=== PATIENT | female | born 1935 | race Caucasian/White ===

== ENCOUNTER 2018-05-25 12:13 | Inpatient (IN) ==
[2018-05-25] MEDS ORDERED: Morphine Sulfate Inj 2 MG/ML Vial IV.PUSH ONE (12:32)
--- NOTE | 2018-05-25 12:32 | ED ---
HPI General Stated Complaint: Trauma Alert Source: patient and EMS Mode of arrival: EMS Limitations: no limitations History of Present Illness HPI narrative: 79-year-old female patient with history of hypertension presents to the ER today because she had tripped and fell and, has a obvious deformity to her left femur. She denies any other injuries. She denies any head injury, loss of consciousness, chest pains, or any other issues. Related Data Allergies Allergy/AdvReac Type Severity Reaction Status Date / Time No Allergy Information Allergy Unverified 05/25/18 12:14 Available Review of Systems ROS: all other systems reviewed are negative PMFSH History History Provided By: Patient Medical History Medical History HTN (hypertension) (Acute) Exam Narrative Exam Narrative: GENERAL: Pleasant elderly white female patient currently in moderate distress. Awake and oriented 3. SKIN: Focused skin assessment warm/dry. HEAD: Atraumatic. Normocephalic. EYES: Pupils equal and round. No scleral icterus. No injection or drainage. ENT: No nasal bleeding or discharge. Mucous membranes pink and moist. NECK: Trachea midline. No JVD. CARDIOVASCULAR: Regular rate and rhythm. No murmur appreciated. RESPIRATORY: No accessory muscle use. Clear to auscultation. Breath sounds equal bilaterally. CHEST: Nontender throughout without deformity or crepitance. No retractions or use of accessory muscles. GASTROINTESTINAL: Abdomen soft, non-tender, nondistended. Hepatic and splenic margins not palpable. Pelvis: Stable and nontender to palpation. EXTREMITIES: No clubbing, cyanosis, or edema. Notable ecchymosis and tenderness at the lower femur area with a small 1 cm laceration to the lateral left knee. Neurovascularly intact. Good pulses. MUSCULOSKELETAL: No obvious deformities. No clubbing. No cyanosis. No edema. NEUROLOGICAL: Awake and alert. No obvious cranial nerve deficits. Motor grossly within normal limits. Normal speech. PSYCHIATRIC: Appropriate mood and affect; insight and judgment normal. Medical Decision Making MDM Narrative Medical decision making narrative: Left femur fracture identified, no dislocations. Patient denies any other injuries, denies any head injury, loss consciousness. There is a small laceration to her left knee, concerning for possible open fracture, tetanus and Ancef ordered for the ER. Case is discussed with Dr. Lee who sees the patient in the trauma room and accepts her for admission. Patient will need orthopedics treatment. Medical Screen Exam Complete: Yes Emergency Medical Condition: Yes Discharge Plan Discharge Disposition Patient Disposition: 30 Still Patient Discharge Condition Condition: Stable Discharge Details Anticipated Discharge Date: 05/25/18 Diagnosis: Femur fracture, left Physicians Team ED Provider: Lizet Medina Status ED Status: In Room
[2018-05-25 12:38] LABS: Baso % (Auto) 0.4 % (0.0-2.0); Eos # (Auto) 0.1 th/mm3 (0.0-0.4); Eos % (Auto) 1.5 % (0.0-4.0); Hematocrit 37.3 % (35.0-46.0); Hemoglobin 12.4 gm/dL (11.6-15.3); Lymph # (Auto) 1.8 th/mm3 (1.0-4.8); Lymph % (Auto) 20.1 % (9.0-44.0); Mean Corpuscular HGB Conc 33.2 % (32.0-36.0); Mean Corpuscular Hemoglobin 29.9 pg (27.0-34.0); Mean Corpuscular Volume 90.2 fL (80.0-100.0); Mean Platelet Volume 7.1 fL (7.0-11.0); Neut # (Auto) 6.1 th/mm3 (1.8-7.7); Platelet Count 256 th/mm3 (150-450); Red Blood Count 4.13 mil/mm3 (4.00-5.30); Red Cell Distribution Width 14.9 % (11.6-17.2); White Blood Count 9.1 th/mm3 (4.0-11.0)
[2018-05-25] MEDS: Diphtheria/Tetanus/Pertussis Vaccine Inj 0.5 ML Syringe IM ONE ×2 (12:43)
[2018-05-25] MEDS ORDERED: ceFAZolin Inj 2,000 MG in Sodium Chlor 0.9% Inj 100 ML IV.SIG ONE (12:45)
--- NOTE | 2018-05-25 12:45 | XR ---
EXAM DATE: 05/25/2018 12:38 PM EDT AGE/SEX: 89 years / Female INDICATIONS: Trauma alert, fall. CLINICAL DATA: This is the patient's initial encounter. Patient reports that signs and symptoms have been present for 1 day and indicates a pain score of 0/10. MEDICAL/SURGICAL HISTORY: None. None. COMPARISON: No prior exams available for comparison. FINDINGS: Basilar density probably represents atelectasis. No significant effusion. No pneumothorax. Tortuous a mesha. Probable previous kyphoplasty in the lower thoracic spine. CONCLUSION: Basilar atelectasis. No effusion or pneumothorax evident. Electronically signed by: Alexander Lim MD 05/25/2018 12:44 PM EDT
[2018-05-25 12:46] LABS: Activated Partial Thrombo Time 25.6 sec (24.3-30.1)
--- NOTE | 2018-05-25 12:49 | XR ---
EXAM DATE: 05/25/2018 12:39 PM EDT AGE/SEX: 89 years / Female INDICATIONS: Trauma alert, fall. CLINICAL DATA: This is the patient's initial encounter. Patient reports that signs and symptoms have been present for 1 day and indicates a pain score of Nonresponsive. MEDICAL/SURGICAL HISTORY: None. None. COMPARISON: No prior exams available for comparison. FINDINGS: Examination of the pelvis demonstrates no evidence of fracture or dislocation. Bony mineralization i s normal. There is no widening of the sacroiliac joints. No foreign body is identified. CONCLUSION: No acute fracture identified. Electronically signed by: Alexander Lim MD 05/25/2018 12:47 PM EDT
--- NOTE | 2018-05-25 12:52 | XR ---
EXAM DATE: 05/25/2018 12:40 PM EDT AGE/SEX: 89 years / Female INDICATIONS: Left femur pain, fall. CLINICAL DATA: This is the patient's initial encounter. Patient reports that signs and symptoms have been present for 1 day and indicates a pain score of 10/10. MEDICAL/SURGICAL HISTORY: None. None. COMPARISON: No prior exams available for comparison. FINDINGS: There is a comminuted fracture of the distal femur with posterior displacement of the distal fragment s. Fracture extends intra-articular. Overlying soft tissue swelling. Proximal tibia appears intact. CONCLUSION: Comminuted and angulated fracture of the distal femur with intra-articular extension. Electronically signed by: Alexander Lim MD 05/25/2018 12:50 PM EDT
[2018-05-25] MEDS ORDERED: Sodium Chlor 0.9% Inj 500 ML IV.SIG SCH (13:00)
[2018-05-25] MEDS ORDERED: HYDROmorphone PF Inj 0.5 MG/0.5 ML Syringe IV.PUSH PRN (14:48)
--- NOTE | 2018-05-25 15:28 | CT ---
EXAM DATE: 05/25/2018 3:20 PM EDT AGE/SEX: 89 years / Female INDICATIONS: Patient fell, fractured distal femur CLINICAL DATA: This is the patient's initial encounter. Patient reports that signs and symptoms have been present for 1 day and indicates a pain score of 10/10. MEDICAL/SURGICAL HISTORY: Hypertension. Discectomy, lumbar. RADIATION DOSE: 7.29 CTDI (mGy) COMPARISON: [facility], FEMUR LEFT 2V, 05/25/2018. . TECHNIQUE: Multiple contiguous axial images were acquired using a multirow detector CT scanner witho ut contrast. Multiplanar reconstruction was performed in the sagittal and coronal planes. Using aut omated exposure control and adjustment of the mA and/or kV according to patient size, radiation dose was kept as low as reasonably achievable to obtain optimal diagnostic quality images. DICOM format i mage data is available electronically for review and comparison. FINDINGS: Bones: There is a comminuted displaced fracture of the distal femoral metaphysis and epiphysis. The femoral condyles are posteriorly displaced by approximately one full shaft width. Displaced butterfly fragments are also present. The fracture lines extend into the intercondylar notch and the medial fe moral condyle. Proximal tibia and fibula are intact. Overall osseous mineralization is decreased. Pat lexi is intact. Joints: There is a small lipohemarthrosis. Soft Tissues: There is hemorrhage and subcutaneous edema around the anterior and posterior aspects o f the knee joint. Muscles demonstrate no definite abnormality. Popliteal artery demonstrates calcific ation but no definite acute abnormality on this noncontrast examination. Other: No foreign bodies seen. CONCLUSION: 1. Comminuted displaced intra-articular fracture of the distal femoral metaphysis and epiphysis. Fra cture lines extend into the intercondylar notch and medial femoral condyle. 2. Small lipo-hemarthrosis with hemorrhage and subcutaneous edema in the surrounding soft tissues. Electronically signed by: Timothy Constantino MD 05/25/2018 3:26 PM EDT
[2018-05-25] MEDS: Sod Chloride 0.9% Inj 1,000 ML IV.CONT SCH (15:33)
[2018-05-25] MEDS ORDERED: HYDROmorphone PF Inj 2 MG/ML Vial ONE (15:46)
[2018-05-25] MEDS: Pantoprazole Inj 40 MG Vial IV.PUSH SCH (16:05)
[2018-05-25] MEDS: HYDROmorphone PF Inj 2 MG/ML Vial IV.PUSH PRN (16:06)
--- NOTE | 2018-05-25 19:48 | MH ---
cc: Steven Lee MD DATE OF ADMISSION: 05/25/2018 CHIEF COMPLAINT: Status post fall, left femur fracture. HISTORY OF PRESENT ILLNESS: The patient is an 79-year-old female who presents to the emergency department as a trauma nontrauma alert. She is status post trip and fall. She is noted to deny any loss of consciousness. Denies any other injuries. She is complaining of left-sided leg deformity which x-ray confirmed left distal femur fracture. The patient had primary and secondary surveys completed. The patient is GCS of 15; following commands appropriately and complaining of left lower extremity pain. She has had 2+ pulses left lower extremity. Patient noted to trip and fall. She denies any syncopal episodes or previous falls. PAST MEDICAL HISTORY: Hypertension. PAST SURGICAL HISTORY: Spine surgery. ALLERGIES: NO KNOWN DRUG ALLERGIES. MEDICATIONS: See EMR. SOCIAL HISTORY: Denies smoking, ETOH or IVDA. FAMILY HISTORY: Denies diabetes or hypertension. REVIEW OF SYSTEMS: GENERAL: A 12-point review of systems done, otherwise negative except as per above. PHYSICAL EXAMINATION: GENERAL: The patient in no acute distress. VITAL SIGNS: Temperature 98.2, pulse 61, respiration 15, blood pressure 170/98, saturation 98%. HEENT: Pupils equal, round, reactive. NECK: Supple. Trachea midline. Clavicles nontender. LUNGS: Clear to auscultation, bilateral expansion. HEART: S1, S2. Regular rate and rhythm. ABDOMEN: Soft, nontender, nondistended. EXTREMITIES: Warm and well perfused. Left lower extremity deformity, tender to palpation, 2+ pulses all extremities. NEUROLOGIC: GCS 15. 5/5 motor in all extremities. Normal speech. PSYCHIATRIC: Appropriate mood, appropriate affect. LABORATORY AND DIAGNOSTIC DATA: WBC 9.1, hemoglobin 12.4, hematocrit 37.3, platelets 256. Sodium 137, potassium 3.9, chloride 101, BUN 27, creatinine 1.1, glucose 115. INR is 1. CT is reviewed by myself showing x-ray of pelvis, no acute fracture. X-ray left femur: Comminuted, angulated femur fracture distal femur intraarticular extension. Chest x-ray: No acute pathology other than a basal atelectasis. ASSESSMENT: Patient is an 79-year-old female status post trip and fall, presents with left extremity femur fracture. PLAN: A full clinical workup of patient on above the issues. At this point, consultation orthopedics for evaluation. Orthopedics planning for operative intervention. We will make the patient regular diet, n.p.o. at midnight, pain control, IV fluids. The patient will be admitted to the surgical floor. We will keep a close observation of patient evidence of ongoing injury. Discussed with the patient in detail. MD LEILA Erickson/arlette , 07:04 PM , 07:14 PM
--- NOTE | 2018-05-25 20:50 | MB ---
cc: Jose Shelton [facility] DATE: 05/25/2018 CHIEF COMPLAINT: Fall with left knee pain. HISTORY OF PRESENT ILLNESS: This is an 79-year-old female with a history of hypertension, hyperlipidemia, and hypothyroidism. The patient arrived in the emergency department today as a trauma alert after she tripped and fell, landing on her left knee. The patient reported having obvious deformity to the left leg. The patient denied having any other injuries. The patient denies head injury or loss of consciousness. The patient currently reports moderate pain to the left knee. The patient denies any prior history to the left lower extremity. The patient denies tingling and numbness. The patient's left lower extremity was evaluated in the emergency department and was found to have a distal femur fracture. The undersigned was consulted for evaluation. REVIEW OF SYSTEMS: Negative x 12, except for what is stated in the HPI. PAST MEDICAL HISTORY: Includes hypertension, hyperlipidemia, and hypothyroidism. 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 FAMILY HISTORY: The patient's mother from heart disease including strokes and heart attacks. The patient's father from circulatory complications and a [id number]-motx amputation, which ultimately resulted in . SOCIAL HISTORY: The patient denies tobacco use and admits to social drinking. ALLERGIES: THE PATIENT HAS NO KNOWN DRUG ALLERGIES. MEDICATIONS: See nurse's notes. PHYSICAL EXAMINATION: VITAL SIGNS: Pulse 58, respirations 16, blood pressure 148/65, pulse oximetry 96% on 2 liters nasal cannula. GENERAL: The patient is resting comfortably in bed, in no acute distress. The patient is well-nourished and well-developed. HEENT: Head is atraumatic and normocephalic. EYES: PERRLA. EARS, NOSE AND THROAT: The patient has moist mucous membranes. No nasal or ear drainage. NECK: Supple and trachea is midline. CARDIOVASCULAR: The patient has 2+ radial and pedal pulses bilaterally. RESPIRATORY: The patient has symmetric chest wall rise and nonlabored breathing. ABDOMEN: The patient's abdomen is soft, nondistended and nontender. MUSCULOSKELETAL: The patient has a long leg splint on the left lower extremity, immobilizing the left knee. The patient has no tenderness to the left ankle or left hip. The patient has good range of motion and no tenderness about the right lower extremity and bilateral upper extremities. NEUROVASCULAR: The patient is alert and oriented x 3 and has no obvious cranial nerve deficits. PSYCHOSOCIAL: The patient has normal mood and affect. LABORATORY DATA: Labs taken on 05/25/2018 show white blood cell count of 9.1, hemoglobin 12.4, hematocrit 37.3, platelets 256. INR is 1, creatinine is 1.1, and glucose is 115. IMAGING: X-ray of the left femur, 2 views taken on 05/25/2018, reads as comminuted and angulated fracture of the distal femur with intra-articular extension. I did review these images and agree with the radiologist's interpretation. AP of the pelvis on 05/25/2018 is read as no acute fracture identified. I have reviewed these images and agree with the radiologist's interpretation. CT of the left knee without contrast on 05/25/2018 reads as a comminuted displaced intra-articular fracture of the distal femoral metaphysis at the physis apophysis. Fracture lines extend into the intercondylar notch and medial femoral condyle. There is a small lipohemarthrosis with hemorrhage and subcutaneous edema in the surrounding soft tissues. I did review the above images and the radiologist's interpretation and agree with this documentation. IMPRESSION: Left comminuted displaced intraarticular distal femur fracture. MEDICAL DECISION MAKING: I have reviewed the above images and examined the patient. We had a lengthy discussion regarding the patient's need for surgical management. We discussed the various types of surgery, including the possibility for rods, plates, and screws. We discussed the risks and benefits of surgery, as well as what to expect with postoperative rehabilitation. The patient has very few medical problems, making her a good candidate for surgical management. The patient understands she will likely require a period of time where she is nonweightbearing postoperatively. After discussing her options, the patient has agreed to proceed with surgical management for the left femur. The patient will be n.p.o. after midnight. The patient's left lower extremity was marked for surgery. The patient understands that surgery may be with one of our partners who is a trauma specialist, depending on the timing of our schedule. I have reviewed the above impression and plan of care with Dr. Rodriguez, and he agrees with this documentation. FLAVIA Xavier , 07:30 PM , 07:45 PM
[2018-05-25] MEDS: Docusate Sodium 100 MG Capsule PO SCH (21:10)
[2018-05-25] MEDS: Docusate Sodium Liq 100 MG/10 ML UDC PO SCH (21:10)
[2018-05-26] MEDS ORDERED: Chlorhexidine Gluconate 2% 1 Pack (2 Cloths) TOPICAL SCH ×2 (01:45→04:00)
[2018-05-26] MEDS: Sod Chloride 0.9% Inj 1,000 ML IV.CONT SCH ×2 (03:15→10:32)
[2018-05-26] MEDS ORDERED: Chlorhexidine Gluconate 2% 1 Pack (2 Cloths) TOPICAL PRN (04:00)
[2018-05-26] MEDS: HYDROmorphone PF Inj 2 MG/ML Vial IV.PUSH PRN (04:37)
--- NOTE | 2018-05-26 06:41 | P.PNOP ---
Subjective Interval history: s/p fall at home left knee pain. no other complaints Physical Exam Vital signs: Vital Signs 05/25/18 12:05 05/25/18 12:41 05/25/18 13:04 Temperature Pulse Rate 60 61 Respiratory Rate 14 Blood Pressure 147/65 H Pulse Oximetry 97 98 97 05/25/18 13:28 05/25/18 14:48 05/25/18 14:49 Temperature Pulse Rate 61 Respiratory Rate 15 Blood Pressure 170/98 H Pulse Oximetry 99 98 98 05/25/18 16:00 05/25/18 16:40 05/25/18 19:34 Temperature Pulse Rate 58 L 58 L Respiratory Rate 16 16 Blood Pressure 148/65 H Pulse Oximetry 96 05/25/18 20:00 05/25/18 22:00 05/26/18 00:00 Temperature 97.5 F L 97.3 F L Pulse Rate 79 74 Respiratory Rate 20 16 16 Blood Pressure 141/85 H 162/14 H Pulse Oximetry 100 96 05/26/18 00:31 05/26/18 04:00 Temperature 97.6 F Pulse Rate 76 Respiratory Rate 17 Blood Pressure 174/74 H Pulse Oximetry 97 99 Intake & Output 05/25/18 05/25/18 05/26/18 06:59 18:59 06:59 Intake Total 1200 / 1200 Balance 1200 / 1200 Weight 58.967 kg 72.4 kg Intake: IV 1100 / 1100 NS Inj 1,000 ML @ 100 mls/hr IV 1000 / 1000 .CONT .Q10H [place] Rx#:[id number] Ancef Inj 2,000 MG In NS Inj 100 / 100 100 ML @ 100 mls/hr IV.SIG ONCE ONE Rx#:[id number] Oral 100 / 100 Other: # Voids 1 Date of Last Bowel Movement 05/25/18 # Bowel Movements 1 Narrative: LLE: +long leg splint. intact. NVI Results - Labs CBC & Chem 7: 05/25/18 12:15 Laboratory Results - last 24 hr 05/25/18 05/25/18 05/25/18 12:15 12:15 12:15 WBC 9.1 RBC 4.13 Hgb 12.4 POC Hgb (Calc) 12.2 Hct 37.3 POC Hct 36.0 MCV 90.2 MCH 29.9 MCHC 33.2 RDW 14.9 Plt Count 256 MPV 7.1 Neut % (Auto) 67.0 Lymph % (Auto) 20.1 [place] % (Auto) 11.0 H Eos % (Auto) 1.5 Baso % (Auto) 0.4 Neut # (Auto) 6.1 Lymph # (Auto) 1.8 [place] # (Auto) 1.0 H Eos # (Auto) 0.1 Baso # (Auto) 0.0 WBC Differential . Differential Comment Auto diff final PT 10.0 INR 1.0 APTT 25.6 POC Sodium 137 POC Potassium 3.9 POC Chloride 101 L POC BUN 27 H POC Creatinine 1.1 POC Glucose 115 H Blood Type Antibody Screen 05/25/18 12:15 WBC RBC Hgb POC Hgb (Calc) Hct POC Hct MCV MCH MCHC RDW Plt Count MPV Neut % (Auto) Lymph % (Auto) [place] % (Auto) Eos % (Auto) Baso % (Auto) Neut # (Auto) Lymph # (Auto) [place] # (Auto) Eos # (Auto) Baso # (Auto) WBC Differential Differential Comment PT INR APTT POC Sodium POC Potassium POC Chloride POC BUN POC Creatinine POC Glucose Blood Type O Negative Antibody Screen Negative - Imaging Impressions Femur X-Ray 05/25/18 00:00 CONCLUSION: Comminuted and angulated fracture of the distal femur with intra-articular extension. Chest X-Ray 05/25/18 12:15 CONCLUSION: Basilar atelectasis. No effusion or pneumothorax evident. Pelvis X-Ray 05/25/18 12:15 CONCLUSION: No acute fracture identified. Knee CT 05/25/18 13:05 CONCLUSION: 1. Comminuted displaced intra-articular fracture of the distal femoral metaphysis and epiphysis. Fracture lines extend into the intercondylar notch and medial femoral condyle. 2. Small lipo-hemarthrosis with hemorrhage and subcutaneous edema in the surrounding soft tissues. Assessment and Plan - Assessment and Plan 1) Left distal Femur Fx -npo -consents -surgery this AM with Jagdish for ORIF vs exfix
[2018-05-26] MEDS ORDERED: Metoprolol Tartrate 25 MG Tablet ONE (08:14)
[2018-05-26] MEDS: Docusate Sodium Liq 100 MG/10 ML UDC PO SCH (08:48)
[2018-05-26] MEDS: amLODIPine 5 MG Tablet PO SCH (08:48)
[2018-05-26] MEDS: Atenolol 25 MG Tablet PO SCH (08:48)
[2018-05-26] MEDS: Docusate Sodium 100 MG Capsule PO SCH (08:48)
[2018-05-26] MEDS ORDERED: Calcium/Vitamin D 250/125 MG Tablet PO SCH (09:00)
[2018-05-26] MEDS ORDERED: Morphine Inj 4 MG/ML Vial IV.PUSH PRN (11:21)
[2018-05-26] MEDS ORDERED: Post-op Orders (for Pharmacy) OTHER STA (11:21)
--- NOTE | 2018-05-26 11:31 | P.CONOP ---
[facility] Orthopedics Consult Note - [facility] Consult date: 05/26/18 Chief complaint: Fall, Left Femur FX Narrative: Martina is a an 82-year-old female. She had a mechanical fall. She landed on her left leg. She had immediate left leg pain and was unable to stand or ambulate. She states that she was walking quickly and her shoe caught on the ground. She denies dizziness, syncope, or loss of consciousness. Her only complaint is her left leg. Pain is worse with movement and is improved with rest. Pain is severe and intense with any motion. Review of Systems Patient denies fevers, chills, weight loss, headache, visual changes, hearing loss, chest pain, palpitations, shortness of breath, nausea, vomiting, no urinary changes, diarrhea, bowel changes, neck pain, back pain, skin rashes, weakness of extremities, easy bleeding, enlarged lymph nodes, numbness of extremities, anxiety, or depression. 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 - Medical History Medical History: Medical History (Last Updated 05/25/18 @ 12:41 by Meliza Costello) HTN (hypertension) Hypercholesterolemia Hypothyroidism - Surgical History Surgical History: Surgical History (Last Updated 05/25/18 @ 12:41 by Meliza Costello) History of back surgery - Family History Family History: Family History (Last Updated 05/26/18 @ 11:27 by Jarek Gudino MD) Other Family history of hypertension - Tobacco History Second Hand Smoke Exposure: No Smoking Status: Never smoker - Alcohol History How Often Do You Have a Drink Containing Alcohol: 2 to 3 times a week - Substance Use History Substance History: No History of Abuse - Travel History Recent Travel in the [facility] Within the Last 8 Weeks: No Recent Travel Out of the Country Within the Last 8 Weeks: No - Immunization History Tetanus Immunization: Unsure Hx Influenza Vaccine This Season: Yes Medications and Allergies Active Medications: Active Medications Amlodipine Besylate (Norvasc) 2.5 mg PO DAILY [facility] Last Admin: 05/26/18 08:48 Dose: Not Given Atenolol (Tenormin) 25 mg PO DAILY [facility] Last Admin: 05/26/18 08:48 Dose: Not Given Calcium/Vitamin D (Oscal With D 250/125 Mg) 2 tab PO BID [facility] Last Admin: 05/26/18 08:48 Dose: Not Given Chlorhexidine Gluconate (Chlorhexidine 2% Cloth) 3 pack TOPICAL DAILY@0400 [facility] Stop: 05/31/18 03:59 Last Admin: 05/26/18 05:28 Dose: Not Given Chlorhexidine Gluconate (Chlorhexidine 2% Cloth) 3 pack TOPICAL DAILY@0400 PRN PRN Reason: Extra cloth needed Stop: 05/31/18 03:59 Chlorhexidine Gluconate (Chlorhexidine 2% Cloth) 3 pack TOPICAL QUILL FIXER [facility] Stop: 05/29/18 01:41 Docusate Sodium (Colace) 100 mg PO BID [facility] Last Admin: 05/26/18 08:48 Dose: Not Given Docusate Sodium (Colace Liq) 100 mg PO BID [facility] Last Admin: 05/26/18 08:48 Dose: Not Given Enalaprilat (Vasotec Inj) 1.25 mg IV.PUSH Q8H PRN PRN Reason: Blood pressure 180/95 Hydromorphone HCl (Dilaudid Pf Inj) 0.5 mg IV.PUSH Q4H PRN PRN Reason: BREAKTHROUGH PAIN Last Admin: 05/26/18 04:37 Dose: 0.5 mg Sodium Chloride (Ns Inj) 500 mls @ 0 mls/hr IV.SIG .Q0M [facility] Sodium Chloride (Ns Inj) 1,000 mls @ 100 mls/hr IV.CONT .Q10H [facility] Last Admin: 05/26/18 10:32 Dose: Not Given Lactated Ringer's (Lr 1000 Ml Inj) 1,000 mls @ 30 mls/hr IV.SIG .Q24H [facility] Stop: 05/29/18 01:41 Last Admin: 05/26/18 08:03 Dose: 30 mls/hr Levothyroxine Sodium (Synthroid) 75 mcg PO DAILY@0600 [facility] Miscellaneous (Pill Splitter) 1 each OTHER UNSCH PRN PRN Reason: SEE LABEL COMMENTS Ondansetron HCl (Zofran Inj) 4 mg IV.PUSH Q6H PRN PRN Reason: NAUSEA OR VOMITING Oxycodone HCl (Roxicodone) 5 mg PO Q4H PRN PRN Reason: Pain 1-5 Last Admin: 05/25/18 21:09 Dose: 5 mg Pantoprazole Sodium (Protonix Inj) 40 mg IV.PUSH Q24H [facility] Last Admin: 05/25/18 16:05 Dose: 40 mg Povidone Iodine (Betadine 5% Antisepsis Kit) 1 applicatio EACH NARE QUILL FIXER [facility] Stop: 05/29/18 01:41 Pravastatin Sodium (Pravachol) 20 mg PO QPM [facility] Sodium Chloride (Ns Flush) 2 ml IV.FLUSH UNSCH PRN PRN Reason: FLUSH AFTER USING IV ACCESS Last Admin: 05/26/18 07:55 Dose: 2 ml Allergies Allergy/AdvReac Type Severity Reaction Status Date / Time No Known Allergies Allergy Unverified 05/25/18 12:40 Home Medications Medication Instructions Recorded Confirmed Type amlodipine 2.5 mg PO DAILY 05/25/18 05/25/18 History atenolol 25 mg PO DAILY 05/25/18 05/25/18 History calcium carbonate-vitamin D3 1 tab PO BID 05/25/18 05/25/18 History [Calcium 500 + D] levothyroxine [Synthroid] 75 mcg PO DAILY 05/25/18 05/25/18 History multivitamin [Daily Vitamin See Label Instructions .ROUTE 05/25/18 05/25/18 History Formula] .COMPLEX omega-3 fatty acids See Label Instructions .ROUTE 05/25/18 05/25/18 History .COMPLEX simvastatin 10 mg PO QPM 05/25/18 05/25/18 History Exam Vital signs: Vital Signs 05/25/18 12:05 05/25/18 12:41 05/25/18 13:04 Temperature Pulse Rate 60 61 Respiratory Rate 14 Blood Pressure 147/65 H Pulse Oximetry 97 98 97 05/25/18 13:28 05/25/18 14:48 05/25/18 14:49 Temperature Pulse Rate 61 Respiratory Rate 15 Blood Pressure 170/98 H Pulse Oximetry 99 98 98 05/25/18 16:00 05/25/18 16:40 05/25/18 19:34 Temperature Pulse Rate 58 L 58 L Respiratory Rate 16 16 Blood Pressure 148/65 H Pulse Oximetry 96 05/25/18 20:00 05/25/18 22:00 05/26/18 00:00 Temperature 97.5 F L 97.3 F L Pulse Rate 79 74 Respiratory Rate 20 16 16 Blood Pressure 141/85 H 162/14 H Pulse Oximetry 100 96 05/26/18 00:31 05/26/18 04:00 05/26/18 08:00 Temperature 97.6 F 97.7 F Pulse Rate 76 81 Respiratory Rate 17 14 Blood Pressure 174/74 H 182/75 H Pulse Oximetry 97 99 99 Intake & Output 05/25/18 05/26/18 05/26/18 18:59 06:59 18:59 Intake Total 1200 / 1200 Balance 1200 / 1200 Weight 58.967 kg 72.4 kg Intake: IV 1100 / 1100 NS Inj 1,000 ML @ 100 mls/hr IV 1000 / 1000 .CONT .Q10H [facility] Rx#:[id number] Ancef Inj 2,000 MG In NS Inj 100 / 100 100 ML @ 100 mls/hr IV.SIG ONCE ONE Rx#:[id number] Oral 100 / 100 Other: # Voids 1 Date of Last Bowel Movement 05/25/18 # Bowel Movements 1 Narrative: Martina is a pleasant 82-year-old female. She is alert and oriented 3. General: Awake and alert. No acute distress. Appears well-developed well- nourished Head: Normocephalic, atraumatic pupils are equal Neck: Soft, nontender, trachea midline Abdomen: Soft, nondistended Examination of bilateral upper extremities reveals no pain or deformity with shoulder, elbow, or wrist motion. Skin is intact. Radial pulses are palpable bilaterally. Normal capillary refill in fingers. Sensation is intact in radial , ulnar, and median nerve distributions. 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 No lymphadenopathy noted. Examination of right lower extremity reveals no pain or deformity with hip, knee , or ankle motion. Skin is intact. Sensation is intact in right foot. Dorsalis pedis pulse is palpable. Normal capillary refill and feet. Thigh and calf compartments are soft. No lymphadenopathy noted. +5 strength of ankle dorsiflexion and plantarflexion. Examination of left leg reveals no tenderness on her hip or ankle. She has mild swelling around the knee. She has a small bruise over the anterior knee. She has pain with any motion. Thigh and calf compartments are soft. Sensation is intact left foot. Dorsalis pedis pulse is palpable. Results - Labs Result Diagrams: 05/25/18 12:15 Labs: Laboratory Results - last 24 hr 05/25/18 05/25/18 05/25/18 12:15 12:15 12:15 WBC 9.1 RBC 4.13 Hgb 12.4 POC Hgb (Calc) 12.2 Hct 37.3 POC Hct 36.0 MCV 90.2 MCH 29.9 MCHC 33.2 RDW 14.9 Plt Count 256 MPV 7.1 Neut % (Auto) 67.0 Lymph % (Auto) 20.1 [place] % (Auto) 11.0 H Eos % (Auto) 1.5 Baso % (Auto) 0.4 Neut # (Auto) 6.1 Lymph # (Auto) 1.8 [place] # (Auto) 1.0 H Eos # (Auto) 0.1 Baso # (Auto) 0.0 WBC Differential . Differential Comment Auto diff final PT 10.0 INR 1.0 APTT 25.6 POC Sodium 137 POC Potassium 3.9 POC Chloride 101 L POC BUN 27 H POC Creatinine 1.1 POC Glucose 115 H Blood Type Antibody Screen 05/25/18 12:15 WBC RBC Hgb POC Hgb (Calc) Hct POC Hct MCV MCH MCHC RDW Plt Count MPV Neut % (Auto) Lymph % (Auto) [place] % (Auto) Eos % (Auto) Baso % (Auto) Neut # (Auto) Lymph # (Auto) [place] # (Auto) Eos # (Auto) Baso # (Auto) WBC Differential Differential Comment PT INR APTT POC Sodium POC Potassium POC Chloride POC BUN POC Creatinine POC Glucose Blood Type O Negative Antibody Screen Negative - Diagnostic results Imaging: Impressions Femur X-Ray 05/25/18 00:00 CONCLUSION: Comminuted and angulated fracture of the distal femur with intra-articular extension. Chest X-Ray 05/25/18 12:15 CONCLUSION: Basilar atelectasis. No effusion or pneumothorax evident. Pelvis X-Ray 05/25/18 12:15 CONCLUSION: No acute fracture identified. Knee CT 05/25/18 13:05 CONCLUSION: 1. Comminuted displaced intra-articular fracture of the distal femoral metaphysis and epiphysis. Fracture lines extend into the intercondylar notch and medial femoral condyle. 2. Small lipo-hemarthrosis with hemorrhage and subcutaneous edema in the surrounding soft tissues. Knee x-ray: report reviewed, image reviewed Knee CT: report reviewed, image reviewed Assessment and Plan - Problem List (1) Osteoporosis Code(s): M81.0 - Age-related osteoporosis without current pathological fracture Status: Acute (2) Femur fracture, left Code(s): S72.92XA - Unspecified fracture of left femur, initial encounter for closed fracture Status: Acute - Assessment and Plan Martina has a complex comminuted intra-articular left distal femur fracture. X- rays and CT scan were reviewed. I discussed treatment options with patient including surgical and nonsurgical options. At this point I would recommend open reduction internal fixation of left distal femur fracture. The risk and benefits of surgery were discussed in depth with patient. The risk of surgery include bleeding, infection, injuries to arteries, nerves, or blood vessels, infection, wound complications, knee stiffness, knee arthritis, nonunion, malunion, painful hardware, and need for further surgery. I also discussed medical complications including blood clots, pneumonia, stroke, heart attack, and . Informed consent was obtained and all questions were answered. I will start patient on calcium and vitamin D supplementation for osteoporosis Patient will have SCDs, CIERRA hose, and Lovenox for DVT prophylaxis I will consult physical therapy postoperatively. She will be nonweightbearing left leg I will plan on surgery today A mid-level provider in my office (nurse practitioner or physician tiler's assistant) may see this patient on follow-up visits and continue to implement the objectives of this plan including: Starting or adjusting medications, injections , cast application, orthotics, brace application, physical therapy, radiological studies (including x-ray, MRI, CT, ultrasound, bone scan), vascular studies, neurologic studies, specialist consultation, and proceeding with surgical management, as appropriate.
--- NOTE | 2018-05-26 11:44 | XR ---
EXAM DATE: 05/26/2018 11:30 AM EDT AGE/SEX: 82 years / Female INDICATIONS: Left femur open reduction internal fixation. CLINICAL DATA: This is the patient's initial encounter. Patient reports that signs and symptoms have been present for 1 day and indicates a pain score of Nonresponsive. MEDICAL/SURGICAL HISTORY: Non-responsive. Non-responsive. COMPARISON: No prior exams available for comparison. FINDINGS: Plate with screws is seen bridging the fracture of the distal femur in anatomic alignment. CONCLUSION: Anatomic alignment on AP spot films. Electronically signed by: Andrei Vazquez MD 05/26/2018 11:43 AM EDT
[2018-05-26] MEDS ORDERED: *Meperidine Inj 25 MG/ML Vial PERIprocedural Use ONLY ONE (12:06)
[2018-05-26] MEDS ORDERED: fentaNYL Citrate Inj 100 MCG/2 ML Ampul ONE ×2 (12:08)
--- NOTE | 2018-05-26 12:30 | P.PN ---
Subjective Interval history: OR today with Ortho for left femur repair Physical Exam Vital signs: Vital Signs 05/25/18 12:41 05/25/18 13:04 05/25/18 13:28 Temperature Pulse Rate 60 61 Respiratory Rate 14 Blood Pressure 147/65 H Pulse Oximetry 98 97 99 05/25/18 14:48 05/25/18 14:49 05/25/18 16:00 Temperature Pulse Rate 61 58 L Respiratory Rate 15 16 Blood Pressure 170/98 H 148/65 H Pulse Oximetry 98 98 96 05/25/18 16:40 05/25/18 19:34 05/25/18 20:00 Temperature 97.5 F L Pulse Rate 58 L 79 Respiratory Rate 16 20 Blood Pressure 141/85 H Pulse Oximetry 100 05/25/18 22:00 05/26/18 00:00 05/26/18 00:31 Temperature 97.3 F L Pulse Rate 74 Respiratory Rate 16 16 Blood Pressure 162/14 H Pulse Oximetry 96 97 05/26/18 04:00 05/26/18 07:35 05/26/18 08:00 Temperature 97.6 F 97.7 F Pulse Rate 76 81 Respiratory Rate 17 14 Blood Pressure 174/74 H 182/75 H Pulse Oximetry 99 99 99 Intake & Output 05/25/18 05/26/18 05/26/18 18:59 06:59 18:59 Intake Total 1200 / 1200 1300 / 1300 Output Total 100 / 100 Balance 1200 / 1200 1200 / 1200 Weight 58.967 kg 72.4 kg Intake: IV 1100 / 1100 NS Inj 1,000 ML @ 100 mls/hr IV 1000 / 1000 .CONT .Q10H [facility] Rx#:[id number] Ancef Inj 2,000 MG In NS Inj 100 / 100 100 ML @ 100 mls/hr IV.SIG ONCE ONE Rx#:[id number] Oral 100 / 100 Anesthesia Amount 1300 / 1300 Output: Estimated Blood Loss 100 / 100 Other: # Voids 1 Date of Last Bowel Movement 05/25/18 # Bowel Movements 1 Narrative: GENERAL: 82-year-old well-nourished, well developed female lying in bed in no acute distress. SKIN: Warm and dry. CARDIOVASCULAR: Regular rate and rhythm. RESPIRATORY: No accessory muscle use. Lungs clear to auscultation. Breath sounds equal bilaterally. GASTROINTESTINAL: Abdomen soft, non-tender, nondistended. + BS. MUSCULOSKELETAL: Extremities without cyanosis, or edema. Left leg with John wrap and CKS in place. MAEW, + perfused NEUROLOGICAL: Awake and alert. Normal speech. Results - Labs CBC & Chem 7: 05/28/18 03:17 Laboratory Results - last 24 hr 05/25/18 05/25/18 05/25/18 12:15 12:15 12:15 WBC 9.1 RBC 4.13 Hgb 12.4 POC Hgb (Calc) 12.2 Hct 37.3 POC Hct 36.0 MCV 90.2 MCH 29.9 MCHC 33.2 RDW 14.9 Plt Count 256 MPV 7.1 Neut % (Auto) 67.0 Lymph % (Auto) 20.1 [place] % (Auto) 11.0 H Eos % (Auto) 1.5 Baso % (Auto) 0.4 Neut # (Auto) 6.1 Lymph # (Auto) 1.8 [place] # (Auto) 1.0 H Eos # (Auto) 0.1 Baso # (Auto) 0.0 WBC Differential . Differential Comment Auto diff final PT 10.0 INR 1.0 APTT 25.6 POC Sodium 137 POC Potassium 3.9 POC Chloride 101 L POC BUN 27 H POC Creatinine 1.1 POC Glucose 115 H Blood Type Antibody Screen 05/25/18 12:15 WBC RBC Hgb POC Hgb (Calc) Hct POC Hct MCV MCH MCHC RDW Plt Count MPV Neut % (Auto) Lymph % (Auto) [place] % (Auto) Eos % (Auto) Baso % (Auto) Neut # (Auto) Lymph # (Auto) [place] # (Auto) Eos # (Auto) Baso # (Auto) WBC Differential Differential Comment PT INR APTT POC Sodium POC Potassium POC Chloride POC BUN POC Creatinine POC Glucose Blood Type O Negative Antibody Screen Negative - Imaging Impressions Femur X-Ray 05/25/18 00:00 CONCLUSION: Comminuted and angulated fracture of the distal femur with intra-articular extension. Chest X-Ray 05/25/18 12:15 CONCLUSION: Basilar atelectasis. No effusion or pneumothorax evident. Pelvis X-Ray 05/25/18 12:15 CONCLUSION: No acute fracture identified. Knee CT 05/25/18 13:05 CONCLUSION: 1. Comminuted displaced intra-articular fracture of the distal femoral metaphysis and epiphysis. Fracture lines extend into the intercondylar notch and medial femoral condyle. 2. Small lipo-hemarthrosis with hemorrhage and subcutaneous edema in the surrounding soft tissues. Femur X-Ray 05/26/18 00:00 CONCLUSION: Anatomic alignment on AP spot films. Assessment and Plan - Plan [place]: Tripped and fell from the standing position. No LOC. INJURIES: LEFT femur fx Knee lac PMHx: HTN, HLD, hypothyroidism LEFT femur fx, Knee lac Orthopedics consulted OR today Pain control Bowel regimen PT/OT Plan of care discussed with patient at bedside. Collaborating Trauma surgeon agrees with plan. Case management consulted to assist with discharge planning. - Attending Attestation The exam, history, and the medical decision-making described in the above note were completed with the assistance of the mid-level provider. I reviewed and agree with the findings presented. I attest that I had a [id number] encounter with the patient on the same day, and personally performed and documented my assessment and findings in the medical record.
[2018-05-26] MEDS ORDERED: Neostigmine Inj 5 MG/5 ML Syringe IV.PUSH ONE (15:35)
[2018-05-26] MEDS ORDERED: Lidocaine PF 1% Inj 5 ML Syringe INFILTRATN ONE (15:35)
[2018-05-26] MEDS ORDERED: Phenylephrine/NS 1000 MCG/10ML Syringe IV.PUSH ONE (15:35)
[2018-05-26] MEDS ORDERED: Glycopyrrolate Inj 1 MG/5 ML Syringe IV.PUSH ONE (15:35)
[2018-05-26] MEDS: Calcium/Vitamin D 250/125 MG Tablet PO SCH ×2 (15:36→17:19)
[2018-05-26] MEDS ORDERED: Acetaminophen 325 MG Tablet PO PRN (15:41)
[2018-05-26] MEDS: Pantoprazole Inj 40 MG Vial IV.PUSH SCH (17:19)
[2018-05-26] MEDS: ceFAZolin Inj 2,000 MG in Sodium Chlor 0.9% Inj 80 ML IV.SIG SCH ×2 (17:27→23:18)
[2018-05-26] MEDS: Senna/Docusate Sodium 8.6/50 MG Tablet PO SCH (20:45)
--- NOTE | 2018-05-26 21:39 | ECG ---
Date Performed: 05/26/2018 Time Performed: 05:44:54 PTAGE: 89 years EKG: Sinus rhythm . Possible anterior infarct - age undetermined Lateral ST-T changes may be due to myocardial ischemia Abnormal ECG NO PREVIOUS TRACING DOCTOR: Jered Luis Interpretating Date/Time 05/26/2018 21:36:58
[2018-05-27 04:48] LABS: Hemoglobin 6.8 gm/dL (11.6-15.3)
[2018-05-27] MEDS: Levothyroxine 75 MCG Tablet PO SCH (05:20)
[2018-05-27] MEDS ORDERED: Sodium Chlor 0.9% Inj 250 ML IV.SIG SCH (06:00)
--- NOTE | 2018-05-27 06:22 | P.PNOP ---
Subjective Interval history: POD 1 s/p ORIF left distal femur doing well. pain controlled. no complaints. Physical Exam Vital signs: Vital Signs 05/26/18 07:35 05/26/18 08:00 05/26/18 11:51 Temperature 97.7 F 96.6 F L Pulse Rate 81 102 H Respiratory Rate 14 22 Blood Pressure 182/75 H 184/82 H Pulse Oximetry 99 99 89 L 05/26/18 12:00 05/26/18 12:15 05/26/18 12:30 Temperature Pulse Rate 90 80 69 Respiratory Rate 23 12 12 Blood Pressure 178/77 H 152/65 H 139/63 Pulse Oximetry 96 99 99 05/26/18 12:45 05/26/18 13:00 05/26/18 13:30 Temperature 97.4 F L Pulse Rate 76 69 62 Respiratory Rate 12 15 14 Blood Pressure 149/55 H 154/68 H 147/98 H Pulse Oximetry 100 100 100 05/26/18 14:00 05/26/18 15:00 05/26/18 16:00 Temperature 97.4 F L 97.9 F Pulse Rate 81 63 69 Respiratory Rate 14 16 16 Blood Pressure 159/70 H 146/90 H 150/69 H Pulse Oximetry 99 99 90 L 05/26/18 20:00 05/27/18 00:00 05/27/18 04:00 Temperature 97.2 F L 97.6 F 98.1 F Pulse Rate 72 81 89 Respiratory Rate 16 16 17 Blood Pressure 118/56 L 126/63 132/57 L Pulse Oximetry 94 L 94 L 99 Intake & Output 05/26/18 05/26/18 05/27/18 06:59 18:59 06:59 Intake Total 1200 / 1200 1740 / 1740 2300 / 2300 Output Total 1000 / 1000 Balance 1200 / 1200 740 / 740 2300 / 2300 Weight 72.4 kg 72.4 kg 72.4 kg Intake: IV 1100 / 1100 200 / 200 2300 / 2300 LR 1000 mL Inj 1,000 ML @ 80 1000 / 1000 mls/hr IV.CONT .[id number] [facility] Rx# :[id number] NS Inj 1,000 ML @ 100 mls/hr IV 1000 / 1000 .CONT .Q10H [facility] Rx#:[id number] Ofirmev Inj 1,000 mg In 100 ml 100 / 100 200 / 200 @ 400 mls/hr IV.SIG Q6H [facility] Rx# :[id number] Ancef Inj 2,000 MG In NS Inj 100 / 100 100 ML @ 100 mls/hr IV.SIG ONCE ONE Rx#:[id number] Ancef Inj 2,000 MG In NS Inj 80 100 / 100 100 / 100 ML @ 200 mls/hr IV.SIG Q8H [facility] Rx#:[id number] Oral 100 / 100 240 / 240 Anesthesia Amount 1300 / 1300 Output: Urine 900 / 900 Estimated Blood Loss 100 / 100 Other: # Voids 1 Date of Last Bowel Movement 05/25/18 05/25/18 # Bowel Movements 1 0 Weight On Admission 72.4 kg Narrative: LLE: dressings clean and dry. intact. NVI. +knee brace Results - Labs CBC & Chem 7: 05/27/18 03:43 Laboratory Results - last 24 hr 05/27/18 05/27/18 03:43 05:54 Hgb 6.8 L* D Hct 20.0 L* MTS Gel Crossmatch See Detail - Imaging Impressions Femur X-Ray 05/26/18 00:00 CONCLUSION: Anatomic alignment on AP spot films. Assessment and Plan - Problem List (1) Osteoporosis Code(s): M81.0 - Age-related osteoporosis without current pathological fracture Status: Acute (2) Femur fracture, left Code(s): S72.92XA - Unspecified fracture of left femur, initial encounter for closed fracture Status: Acute - Assessment and Plan 1) Left Distal Femur Fx s/p ORIF - POD 1 -NWB -no quad sets or leg lifts -Knee brace at all times -PROM 0-90deg -daily dressing changes POD 2 -CM for rehab placement -scripts on chart -f/u with Jagdish or RUI in 2 weeks
[2018-05-27] MEDS: ceFAZolin Inj 2,000 MG in Sodium Chlor 0.9% Inj 80 ML IV.SIG SCH ×3 (08:36→23:46)
[2018-05-27] MEDS: amLODIPine 5 MG Tablet PO SCH (08:37)
[2018-05-27] MEDS: Calcium/Vitamin D 250/125 MG Tablet PO SCH ×4 (08:37→17:10)
[2018-05-27] MEDS: Atenolol 25 MG Tablet PO SCH (08:37)
[2018-05-27] MEDS: Senna/Docusate Sodium 8.6/50 MG Tablet PO SCH ×3 (08:37→21:16)
[2018-05-27] MEDS: Polyethylene Glycol 3350 17 GM Packet PO SCH ×2 (08:38→09:49)
[2018-05-27] MEDS: Vancomycin Inj 1,000 MG in Sodium Chlor 0.9% Inj 250 ML IV.SIG SCH (10:20)
[2018-05-27] MEDS: Enoxaparin Inj 30 MG/0.3 ML Syringe SQ SCH (10:59)
--- NOTE | 2018-05-27 11:19 | P.PN ---
Subjective Interval history: S/P ORIF left femur Hgb dropped to 6.8 today- Transfuse 2 PRBCs Pain controlled Physical Exam Vital signs: Vital Signs 05/26/18 11:51 05/26/18 12:00 05/26/18 12:15 Temperature 96.6 F L Pulse Rate 102 H 90 80 Respiratory Rate 22 23 12 Blood Pressure 184/82 H 178/77 H 152/65 H Pulse Oximetry 89 L 96 99 05/26/18 12:30 05/26/18 12:45 05/26/18 13:00 Temperature 97.4 F L Pulse Rate 69 76 69 Respiratory Rate 12 12 15 Blood Pressure 139/63 149/55 H 154/68 H Pulse Oximetry 99 100 100 05/26/18 13:30 05/26/18 14:00 05/26/18 15:00 Temperature 97.4 F L Pulse Rate 62 81 63 Respiratory Rate 14 14 16 Blood Pressure 147/98 H 159/70 H 146/90 H Pulse Oximetry 100 99 99 05/26/18 16:00 05/26/18 20:00 05/27/18 00:00 Temperature 97.9 F 97.2 F L 97.6 F Pulse Rate 69 72 81 Respiratory Rate 16 16 16 Blood Pressure 150/69 H 118/56 L 126/63 Pulse Oximetry 90 L 94 L 94 L 05/27/18 04:00 05/27/18 08:00 05/27/18 10:27 Temperature 98.1 F 97.6 F 98.1 F Pulse Rate 89 96 H 75 Respiratory Rate 17 18 18 Blood Pressure 132/57 L 113/56 L 140/61 Pulse Oximetry 99 93 L 94 L 05/27/18 10:50 Temperature 98.1 F Pulse Rate 74 Respiratory Rate 18 Blood Pressure 121/58 L Pulse Oximetry 95 Intake & Output 05/26/18 05/27/18 05/27/18 18:59 06:59 18:59 Intake Total 1740 / 1740 2300 / 2300 100 / 100 Output Total 1000 / 1000 Balance 740 / 740 2300 / 2300 100 / 100 Weight 72.4 kg 72.4 kg Intake: IV 200 / 200 2300 / 2300 100 / 100 LR 1000 mL Inj 1,000 ML @ 80 1000 / 1000 mls/hr IV.CONT .[id number] [facility] Rx# :[id number] Ofirmev Inj 1,000 mg In 100 ml 100 / 100 200 / 200 @ 400 mls/hr IV.SIG Q6H [facility] Rx# :[id number] Ancef Inj 2,000 MG In NS Inj 80 100 / 100 100 / 100 100 / 100 ML @ 200 mls/hr IV.SIG Q8H [facility] Rx#:[id number] Oral 240 / 240 Anesthesia Amount 1300 / 1300 Intake (Blood Product) Amt 0 / 0 Rbc As-3 Leukoreduced Unit 0 / 0 [id number] Output: Urine 900 / 900 Estimated Blood Loss 100 / 100 Other: Date of Last Bowel Movement 05/25/18 05/26/18 # Bowel Movements 0 Weight On Admission 72.4 kg Narrative: GENERAL: 82-year-old well-nourished, well developed female lying in bed in no acute distress. SKIN: Warm and dry. HEAD: Normocephalic. NECK: Trachea midline. No JVD. CARDIOVASCULAR: Regular rate and rhythm. RESPIRATORY: No accessory muscle use. Lungs clear to auscultation. Breath sounds equal bilaterally. GASTROINTESTINAL: Abdomen soft, non-tender, nondistended. + BS. MUSCULOSKELETAL: Extremities without cyanosis, or edema. Left leg with John wrap and CKS in place. MAEW, + perfused NEUROLOGICAL: Awake and alert. Normal speech. Results - Labs CBC & Chem 7: 05/28/18 03:17 Laboratory Results - last 24 hr 05/27/18 05/27/18 03:43 05:54 Hgb 6.8 L* D Hct 20.0 L* MTS Gel Crossmatch See Detail - Imaging Impressions Femur X-Ray 05/26/18 00:00 CONCLUSION: Anatomic alignment on AP spot films. Assessment and Plan - Plan [place]: Tripped and fell from the standing position. No LOC. INJURIES: LEFT femur fx Knee lac PMHx: HTN, HLD, hypothyroidism LEFT femur fx, Knee lac Orthopedics consulted 05/26: ORIF left distal femur Pain control Bowel regimen Dressing changes per orthopedics OOB- PT/OT NWB LLE Lovenox Rehab placement Plan of care discussed with patient at bedside. Collaborating Trauma surgeon agrees with plan. Case management consulted to assist with discharge planning. Rehab versus home with home health care if patient does well with PT. - Attending Attestation The exam, history, and the medical decision-making described in the above note were completed with the assistance of the mid-level provider. I reviewed and agree with the findings presented. I attest that I had a [id number] encounter with the patient on the same day, and personally performed and documented my assessment and findings in the medical record.
[2018-05-27] MEDS: Pantoprazole Inj 40 MG Vial IV.PUSH SCH (16:38)
[2018-05-28] VITALS: O2SAT 95
[2018-05-28 04:57] LABS: Hematocrit 27.4 % (35.0-46.0); Hemoglobin 9.7 gm/dL (11.6-15.3)
[2018-05-28] MEDS: Levothyroxine 75 MCG Tablet PO SCH (05:56)
--- NOTE | 2018-05-28 06:51 | P.PNOP ---
Subjective Interval history: Resting comfortably with no new complaints Physical Exam Vital signs: Vital Signs 05/27/18 08:00 05/27/18 10:27 05/27/18 10:50 Temperature 97.6 F 98.1 F 98.1 F Pulse Rate 96 H 75 74 Respiratory Rate 18 18 18 Blood Pressure 113/56 L 140/61 121/58 L Pulse Oximetry 93 L 94 L 95 05/27/18 13:38 05/27/18 16:15 05/27/18 16:35 Temperature 98.8 F 98.9 F Pulse Rate 79 81 Respiratory Rate 17 18 18 Blood Pressure 147/65 H 128/60 Pulse Oximetry 95 95 05/27/18 20:00 05/27/18 23:58 05/28/18 02:43 Temperature 98.2 F 98.3 F Pulse Rate 80 82 Respiratory Rate 1 L 16 16 Blood Pressure 118/61 163/68 H Pulse Oximetry 94 L 95 Intake & Output 05/27/18 05/27/18 05/28/18 06:59 18:59 06:59 Intake Total 2300 / 2300 950 / 950 1500 / 1500 Balance 2300 / 2300 950 / 950 1500 / 1500 Weight 72.4 kg 71.2 kg Intake: IV 2300 / 2300 550 / 550 1100 / 1100 LR 1000 mL Inj 1,000 ML @ 80 1000 / 1000 1000 / 1000 mls/hr IV.CONT .[id number] [facility] Rx# :[id number] Ofirmev Inj 1,000 mg In 100 ml 200 / 200 100 / 100 @ 400 mls/hr IV.SIG Q6H [facility] Rx# :[id number] NS Inj 250 ML @ 15 mls/hr IV. 100 / 100 SIG ONCE [facility] Rx#:[id number] Vancomycin Inj 1,000 MG In NS 250 / 250 Inj 250 ML @ 250 mls/hr IV.SIG Q24H [facility] Rx#:[id number] Ancef Inj 2,000 MG In NS Inj 80 100 / 100 200 / 200 ML @ 200 mls/hr IV.SIG Q8H [facility] Rx#:[id number] Intake (Blood Product) Amt 400 / 400 400 / 400 Rbc As-3 Leukoreduced Unit 0 / 0 400 / 400 [id number] Rbc As-3 Leukoreduced Unit 400 / 400 [id number] Other: # Voids 5 Date of Last Bowel Movement 05/25/18 05/26/18 05/26/18 Narrative: Left lower extremity: Clean dry dressings intact with knee immobilizer in place. Intact sensation distally with active dorsiflexion plantar flexion of foot. Good distal pulses and capillary refills Results - Labs CBC & Chem 7: 05/28/18 03:17 Laboratory Results - last 24 hr 05/27/18 05/28/18 05:54 03:17 Hgb 9.7 L D Hct 27.4 L MTS Gel Crossmatch See Detail Assessment and Plan - Problem List (1) Osteoporosis Code(s): M81.0 - Age-related osteoporosis without current pathological fracture Status: Acute (2) Femur fracture, left Code(s): S72.92XA - Unspecified fracture of left femur, initial encounter for closed fracture Status: Acute - Assessment and Plan 1) Left Distal Femur Fx s/p ORIF - POD 2 -NWB -no quad sets or leg lifts -Knee brace at all times -PROM 0-90deg -daily dressing changes with Xeroform 4 x 4's and John wrap beginning POD 2 -CM for rehab placement -orthopedically for discharge -scripts on chart -f/u with Jagdish or [facility] in 2 weeks
[2018-05-28 07:58] VITALS: BP 155/68; PULSE 83; RESP 18; TEMP 99.4
[2018-05-28] MEDS: ceFAZolin Inj 2,000 MG in Sodium Chlor 0.9% Inj 80 ML IV.SIG SCH (08:00)
[2018-05-28] MEDS: Calcium/Vitamin D 250/125 MG Tablet PO SCH (10:30)
[2018-05-28] MEDS: Senna/Docusate Sodium 8.6/50 MG Tablet PO SCH (10:30)
[2018-05-28] MEDS: amLODIPine 5 MG Tablet PO SCH (10:31)
[2018-05-28] MEDS: Atenolol 25 MG Tablet PO SCH (10:31)
[2018-05-28] MEDS: Polyethylene Glycol 3350 17 GM Packet PO SCH (10:32)
[2018-05-28] MEDS: Enoxaparin Inj 30 MG/0.3 ML Syringe SQ SCH (10:33)
[2018-05-28] MEDS: Vancomycin Inj 1,000 MG in Sodium Chlor 0.9% Inj 250 ML IV.SIG SCH (10:33)
--- NOTE | 2018-05-28 11:57 | P.DS ---
Date of admission: 05/25/18 12:29 Primary care physician: UNKNOWN Brief History from admission: S/P Trip and fall DS: Diagnosis - Discharge Diagnosis (1) Acute post-hemorrhagic anemia Status: Acute (2) Femur fracture, left Status: Acute (3) Osteoporosis Status: Acute DS: Medications - Discharge Medications Prescriptions: hydrocodone-acetaminophen [[place]] 1 tab PO Q4H #40 tab rivaroxaban [Xarelto] 10 mg PO DAILY #14 tab DS: Summary Hospital Course: BISHOP PAIUTE: Tripped and fell from the standing position. No LOC. INJURIES: LEFT femur fx Knee lac PMHx: HTN, HLD, hypothyroidism LEFT femur fx, Knee lac, Anemia Orthopedics consulted, F/U outpatient 05/26: ORIF left distal femur Hgb 9.7 today Pain control Bowel regimen Dressing changes per orthopedics OOB- PT/OT NWB LLE Lovenox Rehab placement F/U with PCP in 1 week Plan of care discussed with patient at bedside. Collaborating Trauma surgeon agrees with plan. Case management consulted to assist with discharge planning. Patient is clear from Trauma surgery standpoint to safely discharge to SNF. - Time Spent with Patient Total time spent providing and/or coordinating discharge services: Greater than 30 minutes - Quality: VTE Deep Vein Thrombosis/Pulmonary Embolism Present on Admission: No Exam Vital signs: Vital Signs 05/27/18 13:38 05/27/18 16:15 05/27/18 16:35 Temperature 98.8 F 98.9 F Pulse Rate 79 81 Respiratory Rate 17 18 18 Blood Pressure 147/65 H 128/60 Pulse Oximetry 95 95 05/27/18 20:00 05/27/18 23:58 05/28/18 02:43 Temperature 98.2 F 98.3 F Pulse Rate 80 82 Respiratory Rate 1 L 16 16 Blood Pressure 118/61 163/68 H Pulse Oximetry 94 L 95 05/28/18 07:56 05/28/18 08:00 Temperature 99.4 F Pulse Rate 83 Respiratory Rate 18 18 Blood Pressure 155/68 H Pulse Oximetry 95 Intake & Output 05/27/18 05/28/18 05/28/18 18:59 06:59 18:59 Intake Total 950 / 950 1500 / 1500 240 / 240 Balance 950 / 950 1500 / 1500 240 / 240 Weight 71.2 kg Intake: IV 550 / 550 1100 / 1100 LR 1000 mL Inj 1,000 ML @ 80 1000 / 1000 mls/hr IV.CONT .[id number] [facility] Rx# :[id number] Ofirmev Inj 1,000 mg In 100 ml 100 / 100 @ 400 mls/hr IV.SIG Q6H [facility] Rx# :[id number] NS Inj 250 ML @ 15 mls/hr IV. 100 / 100 SIG ONCE [facility] Rx#:[id number] Vancomycin Inj 1,000 MG In NS 250 / 250 Inj 250 ML @ 250 mls/hr IV.SIG Q24H [facility] Rx#:[id number] Ancef Inj 2,000 MG In NS Inj 80 200 / 200 ML @ 200 mls/hr IV.SIG Q8H [facility] Rx#:[id number] Oral 240 / 240 Intake (Blood Product) Amt 400 / 400 400 / 400 Rbc As-3 Leukoreduced Unit 0 / 0 400 / 400 [id number] Rbc As-3 Leukoreduced Unit 400 / 400 [id number] Other: # Voids 5 Date of Last Bowel Movement 05/26/18 05/26/18 05/26/18 # Bowel Movements 0 Narrative: GENERAL: 82-year-old well-nourished, well developed female lying in bed in no acute distress. SKIN: Warm and dry. HEAD: Normocephalic. NECK: Trachea midline. No JVD. CARDIOVASCULAR: Regular rate and rhythm. RESPIRATORY: No accessory muscle use. Lungs clear to auscultation. Breath sounds equal bilaterally. GASTROINTESTINAL: Abdomen soft, non-tender, nondistended. + BS. MUSCULOSKELETAL: Extremities without cyanosis, or edema. Left leg with John wrap and CKS in place. MAEW, + perfused NEUROLOGICAL: Awake and alert. Normal speech. Results Procedures completed during hospitalization: 05/26: ORIF left distal femur Labs on day of discharge: Labs from last 24 hours 05/28/18 05/27/18 03:17 05:54 Hgb 9.7 L D Hct 27.4 L MTS Gel Crossmatch See Detail - Impressions ITS Impressions Chest X-Ray 05/25/18 12:15 CONCLUSION: Basilar atelectasis. No effusion or pneumothorax evident. Pelvis X-Ray 05/25/18 12:15 CONCLUSION: No acute fracture identified. Knee CT 05/25/18 13:05 CONCLUSION: 1. Comminuted displaced intra-articular fracture of the distal femoral metaphysis and epiphysis. Fracture lines extend into the intercondylar notch and medial femoral condyle. 2. Small lipo-hemarthrosis with hemorrhage and subcutaneous edema in the surrounding soft tissues. Femur X-Ray 05/26/18 00:00 CONCLUSION: Anatomic alignment on AP spot films. Discharge Plan - Discharge Disposition Patient Disposition: 03 Discharge to SNF - Discharge Condition Condition: Stable - Discharge Order Discharge Orders: Discharge Order (Routine); Ordered 05/28/18 Ordered By: Tiffanie Gomez Orthopedic Clear for Discharge (Routine); Ordered 05/28/18 Ordered By: Neptali Gorman - Physicians Team Primary Care Provider: UNKNOWN, Attending Provider: Steven Lee Other Providers: Ren Dennison MD ; Gilson Conde MD ; [employer] [employer] ; Jovanny Turner MD ; Sadie Moralez ARNP ; Steven Lee MD ; Christelle Boyle MD ; Tiffanie Gomez ARNP ; Jayesh Dill MD ; Keenan Rodriguez MD ; Jarek Gudino MD ; [facility],[place]
--- NOTE | 2018-06-10 06:32 | P.OP ---
Preoperative Diagnosis: Displaced left distal femur supracondylar fracture with intra-articular split Date of procedure: 05/26/18 Procedure: Open reduction internal fixation left distal femur Anesthesia: GETA Surgeon: Jarek Gudino MD Copper Plate Printer: RUFINO Mcmullen PA-C The surgical procedure was assisted by my physician blood and plasma laboratory assistant. My P.A. presence was necessary throughout this case for the manipulation and positioning of the surgical extremity. My P.A. was assisting me throughout the duration of this procedure. The skill set of a physician blood and plasma laboratory assistant was medically necessary to complete this procedure. During the surgical case the surgical supervisor was working at the back table and the physician blood and plasma laboratory assistant was directly assisting me. Operation and Findings: Implants used: ITS Plan of activity: Nonweightbearing, passive range of motion of knee Details of procedure: Informed consent was obtained, operative site was marked. Patient was brought to the OR, placed on OR table, and given IV sedation with GETA. IV antibiotics were administered and timeout procedure was performed. The operative leg was prepped with alcohol, followed with Hibiclens, draped in usual sterile fashion. A timeout procedure was performed. The procedure began with a 4-inch incision over the lateral aspect of the distal femur. Subcutaneous tissue was dissected with Bovie. Iliotibial band was split in line with fibers. At this point the fracture was visualized. The articular surface was also visualized. The split between the articular surface was manually reduced. Steinmann pins were used to hold the condyles reduced. Traction was applied. Fracture was manipulated. There was significant comminution of the metaphyseal region. The fracture reduced into excellent alignment. Steinmann pins were used to hold provisional fixation. At this point attention was turned to plate placement. A lateral condylar plate was selected and attached to the insertion handle jig. The plate was placed underneath the vastus lateralis. Steinmann pins were used to hold the plate to bone. Multiplanar fluoroscopy confirmed appropriate placement of plate. Multiple 4.5 cortical screws were now placed in percutaneous fashion through the plate. The plate was compressed to bone. Multiple locking screws were now placed in the distal segment of the distal femur. Additional screws were placed into the femoral shaft. All screws were predrilled and premeasured for appropriate length. Final fluoroscopy revealed excellent alignment of fracture with well-placed hardware. Wound was thoroughly irrigated. Fascia was closed with #1 Vicryl. Subcutaneous tissue was closed with 3-0 Vicryl. Skin was closed with marixa. Sterile dressings were applied. The patient was placed into a knee immobilizer and transferred to recovery in stable condition. Needle and sponge counts were correct.
== END 2018-05-28 15:36 ==
LOC: NEPE 12:13 → NEDA 12:29 → EDBD 12:29 → NEDA 14:26 → N07 20:01 → N06 05-26 13:46
PROVIDERS: ADMIT Surgery; ATTEND Surgery